=== PATIENT | male | born 2000 | race Asian ===

== ENCOUNTER 2021-01-11 15:43 | Inpatient (IN) ==
[2021-01-11 17:02] LABS: ABS Eosinophils 0.1 10^3/ul (0-0.6); ABS Lymphocytes 1.3 10^3/ul (1.0-4.8); ABS Monocytes 0.3 10^3/ul (0-0.8); ABS Neutrophils 2.4 10^3/ul (1.5-7.7); Eosinophil % 1.7 %; Hematocrit 41 % (42-52); Hemoglobin 13.6 g/dL (14.0-18.0); Lymphocyte % 32.5 %; Mean Corpuscular HGB Conc 34 g/dL (31-36); Mean Corpuscular Hemoglobin 32 pg (27-31); Mean Corpuscular Volume 94 fL (80-94); Mean Platelet Volume 7.7 fL (7.4-10.4); Nucleated Red Blood Cells % 0.1; Platelet Count 242 10^3/uL (150-450); Red Cell Distribution Width 14 % (10-15); White Blood Count 4.1 10^3/uL (3.5-10.8)
[2021-01-11 17:22] LABS: ALT 9 U/L (7-52); AST 14 U/L (13-39); Albumin 4.8 g/dL (3.2-5.2); Albumin/Globulin Ratio 1.8 (1-3); Alkaline Phosphatase 59 U/L (35-149); Anion Gap 2 mmol/L (2-11); Blood Urea Nitrogen 19 mg/dL (6-24); CO2 Carbon Dioxide 30 mmol/L (22-32); Calcium 9.4 mg/dL (8.6-10.3); Chloride 105 mmol/L (101-111); Globulin 2.7 g/dL (2-4); Glucose 83 mg/dL (70-100); Potassium 4.1 mmol/L (3.5-5.0); Sodium 137 mmol/L (135-145); Total Protein 7.5 g/dL (6.4-8.9)
[2021-01-11 18:02] LABS: Acetaminophen < 15 mcg/mL; Alcohol, S < 13 mg/dL (<13); Salicylate < 2.50 mg/dL (<30)
[2021-01-11 18:38] LABS: Urine Appearance Clear; Urine Bilirubin Negative (Negative); Urine Blood Negative (Negative); Urine Color Yellow; Urine Glucose Negative (Negative); Urine Ketones Negative (Negative); Urine Nitrite Negative (Negative); Urine Protein Negative (Negative); Urine Specific Gravity 1.027 (1.002-1.030); Urine Urobilinogen Negative (Negative)
[2021-01-11 18:56] LABS: Urine Benzodiazepine Screen None Detected (None Detect); Urine Cannabinoids Screen None Detected (None Detect); Urine Opiates Screen None Detected (None Detect)
[2021-01-11 19:02] LABS: TSH Ultra Thyroid Stim Horm 0.85 mcIU/mL (0.34-5.60)
[2021-01-11] MEDS ORDERED: Al Hydrox/Mg Hydrox/Simet LIQ 30 ML UDC PO PRN (23:54)
[2021-01-12 01:36] LABS: Rapid COVID-19 Molecular Undetected (Undetected)
[2021-01-12] MEDS: Vitamin THERAPEUTIC TAB PO SCH (11:15)
[2021-01-13] MEDS: Vitamin THERAPEUTIC TAB PO SCH (09:36)
[2021-01-14] MEDS: Vitamin THERAPEUTIC TAB PO SCH (09:04)
[2021-01-15] MEDS: Vitamin THERAPEUTIC TAB PO SCH (07:47)
[2021-01-16] MEDS: Vitamin THERAPEUTIC TAB PO SCH (07:34)
[2021-01-16 08:43] LABS: HDL Cholesterol 59.5 mg/dL
[2021-01-17] MEDS: Vitamin THERAPEUTIC TAB PO SCH (08:52)
[2021-01-17 22:00] VITALS: BP 113/75
[2021-01-18] MEDS: Vitamin THERAPEUTIC TAB PO SCH (08:29)
== END 2021-01-18 16:15 | disposition home or self-care (01) | DRG 751 ==
LOC: ED 15:43 → BSU 21:35
PROVIDERS: ADMIT Psychiatry & Neurology Psychiatry; ATTEND Psychiatry & Neurology Psychiatry